=== PATIENT | male | born 1970 | race Caucasian/White ===

== ENCOUNTER 2024-03-25 11:43 | Outpatient (CLI) | payer MEDICAID | END 2024-03-25 23:59 | disposition critical access hospital (66) | LOC: EMS 11:43 | DX: R07.89 Other chest pain (principal); R60.0 Localized edema; R19.5 Other fecal abnormalities | CPT/HCPCS: A0425; A0427; A0999 ==

== ENCOUNTER 2024-03-25 12:01 | Emergency (ER) | payer MEDICAID, OTHER ==
[2024-03-25 12:32] LABS: BASOPHILS # (AUTO) 0.1 10^3/uL (0.0-0.1); BASOPHILS % (AUTO) 0.5 %; EOSINOPHILS # (AUTO) 0.3 10^3/uL (0.0-0.7); EOSINOPHILS % (AUTO) 2.5 %; HCT - HEMATOCRIT 37.8 % (42.0-52.0); HGB - HEMOGLOBIN 11.8 g/dL (14.0-18.0); LYMPHOCYTES # (AUTO) 2.4 10^3/uL (1.5-3.5); LYMPHOCYTES % (AUTO) 23.1 %; MEAN CORPUSCULAR HEMOGLOBIN 23.5 pg (27.0-31.0); MEAN CORPUSCULAR HGB CONC 31.2 g/dL (32.0-36.0); MEAN CORPUSCULAR VOLUME 75.3 fL (80.0-94.0); MEAN PLATELET VOLUME 10.4 fL (7.4-11.4); MONOCYTES # (AUTO) 0.7 10^3/uL (0.0-1.0); MONOCYTES % (AUTO) 6.2 %; NEUTROPHILS # (AUTO) 7.1 10^3/uL (1.5-6.6); NEUTROPHILS % (AUTO) 67.3 %; PLT - PLATELET COUNT 344 10^3/uL (130-450); RED BLOOD COUNT 5.02 10^6/uL (4.70-6.10); RED CELL DISTRIBUTION WIDTH 14.6 % (12.0-15.0); WHITE BLOOD COUNT 10.5 x10^3/uL (4.8-10.8)
--- NOTE | 2024-03-25 12:39 | ED Physician Documentation ---
PD HPI CHEST PAIN - Stated complaint Stated Complaint: CHEST PX - Chief complaint Chief Complaint: Cardiac - History obtained from History obtained from: Patient - History of Present Illness Timing - onset: Enter time (111), Today Timing - onset during: Light activity Timing - duration: Minutes (10) Timing - details: Abrupt onset, Now resolved Quality: Pressure, Tightness Location: Substernal, Left chest Worsened by: Exertion Associated symptoms: Shortness of air Similar symptoms before: No diagnosis Recently seen: Clinic - Additional information Additional information: Bahman Heart is a 53-year-old male with a history of congestive heart failure and type 2 diabetes. He is on insulin and last night he took additional Lasix because he had some swelling in his ankles. This morning he was on a walk when he was walking up a slight incline he developed some pain in his chest and he has called 911. They were able to provide some nitroglycerin and morphine patient's pain is resolved. Review of Systems Constitutional: denies: Fever, Chills, Myalgias Eyes: denies: Decreased vision Ears: denies: Ear pain Nose: denies: Rhinorrhea / runny nose, Congestion Throat: denies: Sore throat Cardiac: reports: Chest pain / pressure, Pedal edema (resolved today). denies: Palpitations, Calf pain Respiratory: reports: Dyspnea (with exertion). denies: Cough, Wheezing GI: denies: Nausea, Vomiting, Constipation, Diarrhea : reports: Frequency. denies: Dysuria Skin: denies: Rash Musculoskeletal: denies: Neck pain, Back pain PD PAST MEDICAL HISTORY - Past Medical History Past Medical History: Yes Cardiovascular: Congestive heart failure, Hypertension Neuro: None Endocrine/Autoimmune: Type 2 diabetes GI: None HEENT: None - Allergies Allergies/Adverse Reactions: Allergies Allergy/AdvReac Type Severity Reaction Status Date / Time No Known Drug Allergies Allergy Verified 03/25/24 12:10 - Social History Does the pt smoke?: No Smoking Status: Former smoker Does the pt drink ETOH?: No - Immunizations Immunizations are current?: Yes - POLST Patient has POLST: No PD ED PE NORMAL - Vitals Vital signs reviewed: Yes (hypertensive ) - General General: Alert and oriented X 3, No acute distress, Well developed/nourished - HEENT HEENT: Atraumatic, PERRL, EOMI - Neck Neck: Supple, no meningeal sign, No bony TTP - Cardiac Cardiac: RRR, No murmur - Respiratory Respiratory: No respiratory distress, Clear bilaterally - Abdomen Abdomen: Normal bowel sounds, Soft, Non tender, Non distended, No organomegaly - Back Back: No CVA TTP, No spinal TTP - Derm Derm: Normal color, Warm and dry, No rash - Extremities Extremities: No deformity, No edema - Neuro Neuro: Alert and oriented X 3, group burner machine 2-12 intact, No motor deficit, No sensory deficit, Normal speech Eye Opening: Spontaneous Motor: Obeys Commands Verbal: Oriented GCS Score: 15 - Psych Psych: Normal mood, Normal affect Results - Vitals Vitals: Vital Signs - 24 hr 03/25/24 03/25/24 03/25/24 12:10 12:30 13:00 Temperature 36.1 C L Heart Rate 84 86 75 Respiratory 16 16 14 Rate Blood Pressure 129/87 H 158/110 H 159/127 H O2 Saturation 95 100 98 03/25/24 03/25/24 13:30 13:50 Temperature Heart Rate 65 62 Respiratory 13 10 L Rate Blood Pressure 201/103 H 177/116 H O2 Saturation 97 98 Oxygen O2 Source Room air - EKG (time done) 1215 EKG releavant findings:: EKG personally interpreted by author of this note. Relevant findings are: Rate: Rate (enter#) (75) Rhythm: NSR [place]: LAD Intervals: Wide QRS QRS: LVH Ischemia: Normal ST segments Compare to prior EKG: Old EKG unavailable Computer interpretation: Agree with computer - Labs Labs: Laboratory Tests 03/25/24 03/25/24 03/25/24 12:21 12:21 14:43 WBC 10.5 RBC 5.02 Hgb 11.8 L Hct 37.8 L MCV 75.3 L MCH 23.5 L MCHC 31.2 L RDW 14.6 Plt Count 344 MPV 10.4 Neut # (Auto) 7.1 H Lymph # (Auto) 2.4 M[place]at # (Auto) 0.7 Eos # (Auto) 0.3 Baso # (Auto) 0.1 Absolute Nucleated RBC 0.00 Nucleated RBC % 0.0 Sodium 130 L Potassium 4.3 Chloride 96 L Carbon Dioxide 27 Anion Gap 7.0 BUN 19 Creatinine 1.4 H Estimated GFR (MDRD) 53 L Glucose 264 H Calcium 9.2 Total Bilirubin 0.4 AST 9 L ALT 6 L Alkaline Phosphatase 74 Troponin I High Sens 11.8 12.6 Total Protein 8.7 Albumin 3.8 Globulin 4.9 H Albumin/Globulin Ratio 0.8 L Lipase 27 - Rads (name of study) chest Relevant Findings:: Prelim report reviewed (Impression: Cardiomegaly and mild congestion, cannot rule out underlying right infrahilar infiltrate versus atelectasis. No pleural effusion or pneumothorax.), EMP independent interpretation of test, See rad report Procedures - IVC sono (time) 1230 Bedside IVC sono: IVC measures (cm) (0.8), IVC collapsed c insp (cm) (complete), Dehydration (est 2+ liter deficit) PD Medical Decision Making - ED course Complexity details: reviewed results, re-evaluated patient, considered differential, d/w patient ED course: Bahman Heart is a 53-year-old male with a history of congestive heart failure and type 2 diabetes. Last night he took additional Lasix for swelling in his ankles and he was up most of the night urinating. This morning he went to go on a walk and on a slight incline he developed some pain in his chest when he is called 911 he is brought to the hospital symptom-free after administration of nitroglycerin and morphine. The patient looks completely compensated on congestive heart failure on arrival to the emergency department and I interrogated the inferior vena cava with POCUS and found a collapsing small vessel consistent with volume depletion. The patient has a normal-appearing electrocardiogram without evidence of ST elevation or depression. He is at risk for NSTEMI from volume depletion and we administered intravenous saline for the volume depletion and troponins are checked. Departure - Departure Disposition: 01 Home, Self Care Clinical Impression: Dehydration Condition: Stable Instructions: ED Dehydration Follow-Up: Your, doctor [Other] Comments: Bahman, today it looks like the lightheaded and dizziness that you had been related to significant dehydration. This is likely due to to a combination of taking the additional furosemide and having diabetes [id number]. Talk to your doctor about the possibility of using an SGLT 2 inhibitor for treatment of your diabetes as this has an indication in heart failure. This medication can be used as a diuretic when your blood sugar is elevated above 160. You may need to do daily weights to juggle your use of furosemide. Forms: PCP List
[2024-03-25 12:51] LABS: TROPONIN I HIGH SENSITIVITY 11.8 ng/L (2.3-19.7)
[2024-03-25 12:53] LABS: ALBUMIN 3.8 g/dL (3.2-5.5); ALBUMIN/GLOBULIN RATIO 0.8 (1.0-2.2); BILIRUBIN,TOTAL 0.4 mg/dL (0.2-1.0); CALCIUM 9.2 mg/dL (8.5-10.3); CREATININE 1.4 mg/dL (0.6-1.3); POTASSIUM 4.3 mmol/L (3.5-4.5); TOTAL PROTEIN 8.7 g/dL (6.4-8.9)
--- NOTE | 2024-03-25 13:15 | XRAY Report ---
PROCEDURE: Chest 1V INDICATIONS: CHEST PAIN TECHNIQUE: One view of the chest was acquired. COMPARISON: None. FINDINGS: Surgical changes and devices: None. Lungs and pleura: No pleural effusions or pneumothorax. There is mild pulmonary vascular congestion. Subtle hazy opacity in right infrahilar region is seen, early infiltrate versus atelectasis cannot b e excluded. Mediastinum: Mediastinal contours appear normal. Heart size is enlarged. Bones and chest wall: No suspicious bony lesions. Overlying soft tissues appear unremarkable. IMPRESSION: Cardiomegaly and mild congestion, cannot rule out underlying right infrahilar infiltrate versus atele ctasis. No pleural effusion or pneumothorax. Reviewed by: Neeraj Argueta MD on 03/25/2024 1:14 PM PDT Approved by: Neeraj Argueta MD on 03/25/2024 1:14 PM PDT Station ID: [id number]
[2024-03-25 16:19] VITALS: BP 172/127; O2SAT 97
== END 2024-03-25 16:15 | disposition home or self-care (01) ==
LOC: ED 12:01
DX: E86.0 Dehydration (principal); I11.0 Hypertensive heart disease with heart failure; I50.9 Heart failure, unspecified; E11.9 Type 2 diabetes mellitus without complications; Z87.891 Personal history of nicotine dependence
CPT/HCPCS: 36415; 80053; 83690; 84484; 85025; 93005; 99283; 99284